=== PATIENT | female | born 1975 | race Caucasian/White ===

== ENCOUNTER 2023-02-28 13:41 | Outpatient (CLI) | payer BC, SELFPAY ==
[2023-03-04 03:59] LABS: FSH 18.7 mIU/mL (***)
== END 2023-02-28 13:42 | disposition home or self-care (01) ==
LOC: ANHLAB 13:43
PROVIDERS: PCP Obstetrics & Gynecology; Visit Provider Obstetrics & Gynecology
DX: N95.1 Menopausal and female climacteric states (principal)
CPT/HCPCS: 36415; 83001

== ENCOUNTER 2023-03-27 14:57 | Outpatient (CLI) | payer BC, SELFPAY ==
--- NOTE | ~2023-03-27 | MM_ITS ---
EXAMINATION: MM screening lacy BI w bigg HISTORY: Screening mammogram TECHNIQUE: Craniocaudal and mediolateral oblique 3-D tomosynthesis images were obtained and synthetic 2-D images were generated. CAD analysis was submitted and interpreted. COMPARISON: 05/29/2018 BREAST PARENCHYMAL COMPOSITION:There are scattered areas of fibroglandular density. FINDINGS: No suspicious mass, calcification, or architectural distortion are identified in either ines ast to suggest malignancy. There has been no suspicious interval change. IMPRESSION: No mammographic evidence of malignancy. Recommend routine screening mammography in one year. BI-RADS Category 1: Negative Reviewed, dictated and finalized at location .
== END 2023-03-27 14:58 | disposition home or self-care (01) ==
PROVIDERS: PCP Obstetrics & Gynecology; Visit Provider Obstetrics & Gynecology
DX: Z12.31 Encounter for screening mammogram for malignant neoplasm of breast (principal)
CPT/HCPCS: 77063; 77067

== ENCOUNTER 2024-05-01 11:17 | Outpatient (CLI) | payer BC, SELFPAY ==
--- NOTE | ~2024-05-01 | US_ITS ---
US pelvic complete w TV Ordering provider: Russell Del Valle MD History: . Z30.431 - Encounter for routine checking of intrauterine ... . Comparison: None. Technique: Transabdominal and endovaginal ultrasound of the pelvis (Doppler ultrasound interrogation techniques used as needed for this exam.) FINDINGS: CERVIX: Normal. UTERUS: Measures 12.1x 3.8x 5.5 cm in length which is within normal limits and is anteverted. No fan metrial masses. IUD is seen in the fundus. Hypodense areas seen in the area which measures 1.4 x 1.1 cm. Ec hogenic areas are seen in the collection. Further evaluation and follow-up advised. ENDOMETRIUM: Normal in thickness measuring 6 mm. (Note: the premenopausal endometrium may measure up to 16 mm when in the secretory phase.) No endometrial masses, cysts or fluid. CUL DE SAC: No free fluid. RIGHT OVARY: Normal in size measuring 1.7x 1.5x 2.3 cm. Normal echotexture. Doppler vascular flow pre sent. LEFT OVARY: Normal in size measuring 3x 1.6x 2 cm. Normal echotexture. Doppler vascular flow present. Follicle measuring 1.1 cm is seen. ADNEXA: Normal. No mass. IMPRESSION: Hypodense areas seen in the area which measures 1.4 x 1.1 cm. Echogenic areas seen in this hypoechoic area. Further evaluation and follow-up advised. Otherwise, normal pelvic ultrasound. Reviewed, dictated and finalized at location A. IMPRESSION: Hypodense areas seen in the area which measures 1.4 x 1.1 cm. Echogen ic areas seen in this hypoechoic area. Further evaluation and follow-up advised . Otherwise, normal pelvic ultrasound.
== END 2024-05-01 11:18 ==
LOC: MICIMG 11:18
PROVIDERS: PCP Obstetrics & Gynecology; Visit Provider Obstetrics & Gynecology
DX: Z30.431 Encounter for routine checking of intrauterine contraceptive device (principal)
CPT/HCPCS: 76830; 76856

== ENCOUNTER 2025-04-22 09:46 | Outpatient (CLI) | payer BC, SELFPAY ==
--- NOTE | ~2025-04-22 | US_ITS ---
US pelvic complete w TV Ordering provider: Russell Del Valle MD History: . T83.32XA - Displacement of intrauterine contraceptive dev... . Comparison: None. Technique: Transabdominal and endovaginal ultrasound of the pelvis (Doppler ultrasound interrogation techniques used as needed for this exam.) FINDINGS: CERVIX: Normal. UTERUS: Measures 10.1x 4.4x 5.3 cm in length which is within normal limits and is anteverted. Slight ly hyperechoic area is seen in the anterior wall of the uterus which measures 1.7 x 1.5 x 1.9 cm whic h may be a small fibroid. Follow-up advised. ENDOMETRIUM: Heterogeneous echotexture. Thickness measuring 5 mm. No endometrial masses, cysts or flu id. IUD is seen in the endometrial cavity. CUL DE SAC: No free fluid. RIGHT OVARY: Normal in size measuring 2.3x 1.5x 1.4 cm. Normal echotexture. Doppler vascular flow pre sent. LEFT OVARY: Normal in size measuring 3.7x 3x 3.7 cm. Normal echotexture. Doppler vascular flow presen t. Cyst is seen measuring 2.8 x 2.4 x 1.9 cm. ADNEXA: Normal. No mass. IMPRESSION: Highly suggestive fibroid seen in the anterior wall of the uterus. Heterogenous echotexture of the en dometrium. Follow-up and clinical correlation advised. Cyst in the right ovary. Otherwise, normal pel yeesnia ultrasound. Reviewed, dictated and finalized at location A. IMPRESSION: Highly suggestive fibroid seen in the anterior wall of the uterus. Heterogenous echotexture of the endometrium. Follow-up and clinical correlation advised. Cy st in the right ovary. Otherwise, normal pelvic ultrasound.
== END 2025-04-22 09:47 | disposition home or self-care (01) ==
LOC: MICIMG 09:46
PROVIDERS: PCP Obstetrics & Gynecology; Visit Provider Obstetrics & Gynecology
DX: D25.9 Leiomyoma of uterus, unspecified (principal); N85.8 Other specified noninflammatory disorders of uterus; N83.201 Unspecified ovarian cyst, right side; T83.32XA Displacement of intrauterine contraceptive device, initial encounter
CPT/HCPCS: 76830; 76856

== ENCOUNTER 2025-09-23 08:18 | Outpatient (CLI) | payer BC, SELFPAY ==
--- NOTE | ~2025-09-23 | MM_ITS ---
EXAMINATION: MM screening lacy BI w bigg HISTORY: Screening TECHNIQUE: Craniocaudal and mediolateral oblique 3-D tomosynthesis images were obtained and synthetic 2-D images were generated. CAD analysis was submitted and interpreted. COMPARISON: Comparison to multiple prior studies sequentially, with oldest reviewed study dated 05/29/2018. BREAST PARENCHYMAL COMPOSITION: Dense: The breasts are heterogeneously dense, which may obscure small masses FINDINGS: There is no evidence of suspicious mass, calcification, or architectural distortion to suggest malignancy in either breast. There has been no suspicious interval change. IMPRESSION: 1. No mammographic evidence of malignancy. 2. Recommend routine screening mammography in one year. BI-RADS Category 1: Negative Reviewed, dictated and finalized at location B. [employer]
== END 2025-09-23 08:19 | disposition home or self-care (01) ==
LOC: ANHFOHIMG 08:20
PROVIDERS: PCP Obstetrics & Gynecology; Visit Provider Obstetrics & Gynecology
DX: Z12.31 Encounter for screening mammogram for malignant neoplasm of breast (principal)
CPT/HCPCS: 77063; 77067